=== PATIENT | female | born 1985 ===

== ENCOUNTER 2024-08-18 16:20 | Emergency (ER) | payer OTHER ==
[~2024-08-18] VITALS: Ht 152.4 cm; Wt 68.2 kg
[2024-08-18 16:26] VITALS: BP 120/63; PULSE 79; RESP 16; TEMP 98.9; O2SAT 99
[2024-08-18] MEDS ORDERED: DULA0.75 SQ (16:33)
[2024-08-18 17:05] LABS: COVID AG,FIA SOURCE NASAL SWAB
[2024-08-18 17:25] LABS: RAPID GROUP A STREP NEGATIVE (NEGATIVE)
[2024-08-18 17:37] LABS: SARS-COV2 (COVID) ANTIGEN,FIA Negative (Negative)
[2024-08-18 17:39] LABS: INFLUENZA TYPE A NEGATIVE FOR TYPE A (NEGATIVE); INFLUENZA TYPE B POSITIVE FOR TYPE B (NEGATIVE)
[2024-08-18] MEDS ORDERED: BENZ-227 PO (18:48)
== END 2024-08-18 18:53 | disposition home or self-care (01) ==
LOC: EMS 16:20
DX: J10.1 Influenza due to other identified influenza virus with other respiratory manifestations (principal); B97.89 Other viral agents as the cause of diseases classified elsewhere; E11.9 Type 2 diabetes mellitus without complications; Z20.822 Contact with and (suspected) exposure to COVID-19
CPT/HCPCS: 87430; 87804; 99283